=== PATIENT | female | born 1955 | race Caucasian/White ===

== ENCOUNTER 2022-12-30 08:50 | Outpatient (CLI) | payer MEDICARE | END 2022-12-30 08:51 | disposition home or self-care (01) | LOC: CSHWCC 08:50 | PROVIDERS: ATTEND Nurse Practitioner Family | DX: L89.154 Pressure ulcer of sacral region, stage 4 (principal); L89.314 Pressure ulcer of right buttock, stage 4 | CPT/HCPCS: 11042; 97139; 97607; G0463; 99213 ==

== ENCOUNTER 2023-01-12 09:52 | Outpatient (CLI) | payer MEDICARE | END 2023-01-12 09:53 | disposition home or self-care (01) | LOC: CSHWCC 09:52 | PROVIDERS: ATTEND Nurse Practitioner Family | DX: L89.154 Pressure ulcer of sacral region, stage 4 (principal); L89.314 Pressure ulcer of right buttock, stage 4 | CPT/HCPCS: 97607 ==

== ENCOUNTER 2023-01-19 15:24 | Outpatient (CLI) | payer MEDICARE | END 2023-01-19 15:25 | disposition home or self-care (01) | LOC: CSHWCC 15:24 | PROVIDERS: ATTEND Nurse Practitioner Family | DX: L89.154 Pressure ulcer of sacral region, stage 4 (principal); L89.314 Pressure ulcer of right buttock, stage 4; L89.323 Pressure ulcer of left buttock, stage 3 | CPT/HCPCS: 97607 ==

== ENCOUNTER 2023-01-26 15:29 | Outpatient (CLI) | payer MEDICARE | END 2023-01-26 15:30 | disposition home or self-care (01) | LOC: CSHWCC 15:29 | PROVIDERS: ATTEND Nurse Practitioner Family | DX: L89.154 Pressure ulcer of sacral region, stage 4 (principal); L89.314 Pressure ulcer of right buttock, stage 4; L89.323 Pressure ulcer of left buttock, stage 3 | CPT/HCPCS: 11043; 97607 ==

== ENCOUNTER 2023-02-02 15:22 | Outpatient (CLI) | payer MEDICARE | END 2023-02-02 15:23 | disposition home or self-care (01) | LOC: CSHWCC 15:22 | PROVIDERS: ATTEND Nurse Practitioner Family | DX: L89.154 Pressure ulcer of sacral region, stage 4 (principal); L89.314 Pressure ulcer of right buttock, stage 4; L89.323 Pressure ulcer of left buttock, stage 3 | CPT/HCPCS: 97607 ==

== ENCOUNTER 2023-02-10 13:06 | Outpatient (CLI) | payer MEDICARE | END 2023-02-10 13:07 | disposition home or self-care (01) | LOC: CSHWCC 13:06 | PROVIDERS: ATTEND Nurse Practitioner Family | DX: L89.154 Pressure ulcer of sacral region, stage 4 (principal); L89.314 Pressure ulcer of right buttock, stage 4; L89.323 Pressure ulcer of left buttock, stage 3 | CPT/HCPCS: 97607 ==

== ENCOUNTER 2023-02-16 16:12 | Outpatient (CLI) | payer MEDICARE | END 2023-02-16 16:13 | disposition home or self-care (01) | LOC: CSHWCC 16:12 | PROVIDERS: ATTEND Nurse Practitioner Family | DX: L89.154 Pressure ulcer of sacral region, stage 4 (principal); L89.314 Pressure ulcer of right buttock, stage 4; L89.323 Pressure ulcer of left buttock, stage 3 | CPT/HCPCS: 97602 ==

== ENCOUNTER 2023-02-17 09:49 | Outpatient (CLI) | payer MEDICARE | END 2023-02-17 09:50 | disposition home or self-care (01) | LOC: CSHRAD 09:49 | PROVIDERS: ATTEND Nurse Practitioner Family | DX: L89.323 Pressure ulcer of left buttock, stage 3 (principal) | CPT/HCPCS: 72170 ==

== ENCOUNTER 2023-04-02 09:12 | Outpatient (CLI) | payer MEDICARE | END 2023-04-02 09:13 | disposition home or self-care (01) | LOC: CSHWCC 09:12 | PROVIDERS: ATTEND Physician Assistant | DX: L89.320 Pressure ulcer of left buttock, unstageable (principal); L89.310 Pressure ulcer of right buttock, unstageable; G82.20 Paraplegia, unspecified | CPT/HCPCS: 97597 ==

== ENCOUNTER 2023-05-20 10:12 | Outpatient (CLI) | payer MEDICARE | END 2023-05-20 10:13 | disposition home or self-care (01) | LOC: CSHWCC 10:12 | PROVIDERS: ATTEND Physician Assistant | DX: L89.310 Pressure ulcer of right buttock, unstageable (principal); L89.150 Pressure ulcer of sacral region, unstageable; L89.324 Pressure ulcer of left buttock, stage 4 | CPT/HCPCS: 97597; 97605 ==

== ENCOUNTER 2023-06-17 13:20 | Outpatient (CLI) | payer MEDICARE | END 2023-06-17 13:21 | disposition home or self-care (01) | LOC: CSHWCC 13:20 | PROVIDERS: ATTEND Preventive Medicine Undersea and Hyperbaric Medicine | DX: L89.304 Pressure ulcer of unspecified buttock, stage 4 (principal) | CPT/HCPCS: 97605; G0463; 99213 ==

== ENCOUNTER 2023-06-19 11:26 | Outpatient (CLI) | payer MEDICARE | END 2023-06-19 11:27 | disposition home or self-care (01) | LOC: CSHWCC 11:26 | PROVIDERS: ATTEND Preventive Medicine Undersea and Hyperbaric Medicine | DX: L89.304 Pressure ulcer of unspecified buttock, stage 4 (principal) | CPT/HCPCS: 97605 ==

== ENCOUNTER 2024-04-26 13:32 | Outpatient (CLI) | payer MEDICARE | END 2024-04-26 13:33 | disposition home or self-care (01) | LOC: CSHWCC 13:32 | PROVIDERS: ATTEND Nurse Practitioner Family | DX: E11.622 Type 2 diabetes mellitus with other skin ulcer (principal); L89.44 Pressure ulcer of contiguous site of back, buttock and hip, stage 4; G37.3 Acute transverse myelitis in demyelinating disease of central nervous system | CPT/HCPCS: 11042 ==

== ENCOUNTER 2024-05-02 12:41 | Outpatient (CLI) | payer MEDICARE | END 2024-05-02 12:42 | disposition home or self-care (01) | LOC: CSHWCC 12:41 | PROVIDERS: ATTEND Nurse Practitioner Family | DX: L89.44 Pressure ulcer of contiguous site of back, buttock and hip, stage 4 (principal); E11.622 Type 2 diabetes mellitus with other skin ulcer; L98.499 Non-pressure chronic ulcer of skin of other sites with unspecified severity; G37.3 Acute transverse myelitis in demyelinating disease of central nervous system | CPT/HCPCS: 11042; G0463; 99213 ==

== ENCOUNTER 2024-05-10 14:05 | Outpatient (CLI) | payer MEDICARE | END 2024-05-10 14:06 | disposition home or self-care (01) | LOC: CSHWCC 14:05 | PROVIDERS: ATTEND Nurse Practitioner Family | DX: L89.44 Pressure ulcer of contiguous site of back, buttock and hip, stage 4 (principal); E11.622 Type 2 diabetes mellitus with other skin ulcer; L98.499 Non-pressure chronic ulcer of skin of other sites with unspecified severity; G37.3 Acute transverse myelitis in demyelinating disease of central nervous system | CPT/HCPCS: 11042; 97605; G0463; 99212 ==

== ENCOUNTER 2024-05-17 11:18 | Outpatient (CLI) | payer MEDICARE | END 2024-05-17 11:19 | disposition home or self-care (01) | LOC: CSHWCC 11:18 | PROVIDERS: ATTEND Nurse Practitioner Family | DX: L89.44 Pressure ulcer of contiguous site of back, buttock and hip, stage 4 (principal); G37.3 Acute transverse myelitis in demyelinating disease of central nervous system; E11.622 Type 2 diabetes mellitus with other skin ulcer; L98.499 Non-pressure chronic ulcer of skin of other sites with unspecified severity | CPT/HCPCS: 11042; 97605 ==

== ENCOUNTER 2024-05-24 14:51 | Outpatient (CLI) | payer MEDICARE | END 2024-05-24 14:52 | disposition home or self-care (01) | LOC: CSHWCC 14:51 | PROVIDERS: ATTEND Nurse Practitioner Family | DX: L89.44 Pressure ulcer of contiguous site of back, buttock and hip, stage 4 (principal); E11.622 Type 2 diabetes mellitus with other skin ulcer; L98.499 Non-pressure chronic ulcer of skin of other sites with unspecified severity; G37.3 Acute transverse myelitis in demyelinating disease of central nervous system; M86.38 Chronic multifocal osteomyelitis, other site | CPT/HCPCS: 11042; G0463; 99212 ==

== ENCOUNTER 2024-05-30 14:18 | Outpatient (CLI) | payer MEDICARE | END 2024-05-30 14:19 | disposition home or self-care (01) | LOC: CSHWCC 14:18 | PROVIDERS: ATTEND Nurse Practitioner Family | DX: L89.44 Pressure ulcer of contiguous site of back, buttock and hip, stage 4 (principal); E11.622 Type 2 diabetes mellitus with other skin ulcer; L98.499 Non-pressure chronic ulcer of skin of other sites with unspecified severity; G37.3 Acute transverse myelitis in demyelinating disease of central nervous system; M86.38 Chronic multifocal osteomyelitis, other site | CPT/HCPCS: 11042; 87070; 87077; 87186; 87205; 97605; G0463; 99213 ==

== ENCOUNTER 2024-06-17 13:20 | Outpatient (CLI) | payer MEDICARE | END 2024-06-17 13:21 | disposition home or self-care (01) | LOC: CSHWCC 13:20 | PROVIDERS: ATTEND Nurse Practitioner Family | DX: L89.44 Pressure ulcer of contiguous site of back, buttock and hip, stage 4 (principal); E11.622 Type 2 diabetes mellitus with other skin ulcer; L98.499 Non-pressure chronic ulcer of skin of other sites with unspecified severity; M86.38 Chronic multifocal osteomyelitis, other site; G37.3 Acute transverse myelitis in demyelinating disease of central nervous system ==

== ENCOUNTER 2025-01-19 06:00 | Day surgery (SDC) | payer MEDICARE ==
[2025-01-11 11:31] VITALS: BMI 22.6
[2025-01-19] MEDS ORDERED: Bupivacaine HCl 0.5%/Epinephrine 1:200,000/PF 30 ml Vial ONE (06:52)
[2025-01-19] MEDS ORDERED: Etomidate 40 MG (20 mL) VIAL ONE (07:14)
[2025-01-19] MEDS ORDERED: PROPOFOL 20 ML ONE (07:16)
[2025-01-19] MEDS ORDERED: Rocuronium Bromide 10 MG/ML (10ML VIAL) ONE (07:17)
[2025-01-19] MEDS ORDERED: Ondansetron PF 4 MG/2 ML Vial ONE (07:54)
[2025-01-19] MEDS ORDERED: SUGAMMADEX SODIUM 200 MG/2 ML VIAL ONE (08:16)
[2025-01-19] MEDS ORDERED: Acetaminophen 500 MG TAB ONE (09:45)
== END 2025-01-19 10:40 | disposition home or self-care (01) ==
LOC: CSHSDC 06:00
PROVIDERS: ATTEND Surgery
PROC: 0JB90ZZ Excision of Buttock Subcutaneous Tissue and Fascia, Open Approach (ICD-10-PCS; principal; 2025-01-19)
DX: L89.323 Pressure ulcer of left buttock, stage 3 (principal); L89.313 Pressure ulcer of right buttock, stage 3; E11.9 Type 2 diabetes mellitus without complications; G37.3 Acute transverse myelitis in demyelinating disease of central nervous system; Z91.018 Allergy to other foods; Z88.1 Allergy status to other antibiotic agents; Z88.5 Allergy status to narcotic agent; Z91.040 Latex allergy status; Z88.0 Allergy status to penicillin; Z88.8 Allergy status to other drugs, medicaments and biological substances; Z79.4 Long term (current) use of insulin; Z79.899 Other long term (current) drug therapy
CPT/HCPCS: 11042; 11045; 82962; J2405; J2704; J3010; J3490; 36416

== ENCOUNTER 2025-01-20 13:41 | Outpatient (CLI) | payer MEDICARE | END 2025-01-20 13:42 | disposition home or self-care (01) | LOC: CSHWCC 13:41 | PROVIDERS: ATTEND Nurse Practitioner Family | DX: L89.44 Pressure ulcer of contiguous site of back, buttock and hip, stage 4 (principal); E11.622 Type 2 diabetes mellitus with other skin ulcer; L98.499 Non-pressure chronic ulcer of skin of other sites with unspecified severity; G37.3 Acute transverse myelitis in demyelinating disease of central nervous system; M86.38 Chronic multifocal osteomyelitis, other site | CPT/HCPCS: 97605; G0463; 99214 ==

== ENCOUNTER 2025-01-27 11:38 | Outpatient (CLI) | payer MEDICARE | END 2025-01-27 11:39 | disposition home or self-care (01) | LOC: CSHWCC 11:38 | PROVIDERS: ATTEND Nurse Practitioner Family | DX: L89.44 Pressure ulcer of contiguous site of back, buttock and hip, stage 4 (principal); E11.622 Type 2 diabetes mellitus with other skin ulcer; L98.499 Non-pressure chronic ulcer of skin of other sites with unspecified severity; G37.3 Acute transverse myelitis in demyelinating disease of central nervous system; M86.38 Chronic multifocal osteomyelitis, other site ==

== ENCOUNTER 2025-01-30 10:56 | Outpatient (CLI) | payer MEDICARE | END 2025-01-30 10:57 | disposition home or self-care (01) | LOC: CSHWCC 10:56 | PROVIDERS: ATTEND Nurse Practitioner Family | DX: L89.44 Pressure ulcer of contiguous site of back, buttock and hip, stage 4 (principal); E11.622 Type 2 diabetes mellitus with other skin ulcer; L98.499 Non-pressure chronic ulcer of skin of other sites with unspecified severity; G37.3 Acute transverse myelitis in demyelinating disease of central nervous system; M86.38 Chronic multifocal osteomyelitis, other site ==

== ENCOUNTER 2025-02-02 11:10 | Outpatient (CLI) | payer MEDICARE | END 2025-02-02 11:11 | disposition home or self-care (01) | LOC: CSHWCC 11:10 | PROVIDERS: ATTEND Nurse Practitioner Family | DX: L89.44 Pressure ulcer of contiguous site of back, buttock and hip, stage 4 (principal); E11.622 Type 2 diabetes mellitus with other skin ulcer; L98.499 Non-pressure chronic ulcer of skin of other sites with unspecified severity; G37.3 Acute transverse myelitis in demyelinating disease of central nervous system; M86.38 Chronic multifocal osteomyelitis, other site | CPT/HCPCS: 11042; 97605 ==

== ENCOUNTER 2025-02-07 12:28 | Outpatient (CLI) | payer MEDICARE | END 2025-02-07 12:29 | disposition home or self-care (01) | LOC: CSHWCC 12:28 | PROVIDERS: ATTEND Nurse Practitioner Family | DX: L89.44 Pressure ulcer of contiguous site of back, buttock and hip, stage 4 (principal); E11.622 Type 2 diabetes mellitus with other skin ulcer; L98.499 Non-pressure chronic ulcer of skin of other sites with unspecified severity; G37.3 Acute transverse myelitis in demyelinating disease of central nervous system; M86.38 Chronic multifocal osteomyelitis, other site | CPT/HCPCS: 97605 ==

== ENCOUNTER 2025-02-10 10:28 | Outpatient (CLI) | payer MEDICARE | END 2025-02-10 10:29 | disposition home or self-care (01) | LOC: CSHWCC 10:28 | PROVIDERS: ATTEND Nurse Practitioner Family | DX: L89.44 Pressure ulcer of contiguous site of back, buttock and hip, stage 4 (principal); E11.622 Type 2 diabetes mellitus with other skin ulcer; L98.499 Non-pressure chronic ulcer of skin of other sites with unspecified severity; E11.69 Type 2 diabetes mellitus with other specified complication; M86.38 Chronic multifocal osteomyelitis, other site; G37.3 Acute transverse myelitis in demyelinating disease of central nervous system | CPT/HCPCS: 97605; G0463; 99213 ==

== ENCOUNTER 2025-02-14 11:06 | Outpatient (CLI) | payer MEDICARE | END 2025-02-14 11:07 | disposition home or self-care (01) | LOC: CSHWCC 11:06 | PROVIDERS: ATTEND Nurse Practitioner Family | DX: L89.44 Pressure ulcer of contiguous site of back, buttock and hip, stage 4 (principal); E11.622 Type 2 diabetes mellitus with other skin ulcer; L98.499 Non-pressure chronic ulcer of skin of other sites with unspecified severity; G37.3 Acute transverse myelitis in demyelinating disease of central nervous system; M86.38 Chronic multifocal osteomyelitis, other site | CPT/HCPCS: 97605 ==

== ENCOUNTER 2025-02-17 10:11 | Outpatient (CLI) | payer MEDICARE | END 2025-02-17 10:12 | disposition home or self-care (01) | LOC: CSHWCC 10:11 | PROVIDERS: ATTEND Nurse Practitioner Family | DX: L89.44 Pressure ulcer of contiguous site of back, buttock and hip, stage 4 (principal); E11.622 Type 2 diabetes mellitus with other skin ulcer; L98.499 Non-pressure chronic ulcer of skin of other sites with unspecified severity; G37.3 Acute transverse myelitis in demyelinating disease of central nervous system; E11.69 Type 2 diabetes mellitus with other specified complication; M86.38 Chronic multifocal osteomyelitis, other site | CPT/HCPCS: 11042; 97605 ==

== ENCOUNTER 2025-02-21 11:03 | Outpatient (CLI) | payer MEDICARE | END 2025-02-21 11:04 | disposition home or self-care (01) | LOC: CSHWCC 11:03 | PROVIDERS: ATTEND Nurse Practitioner Family | DX: L89.44 Pressure ulcer of contiguous site of back, buttock and hip, stage 4 (principal); E11.622 Type 2 diabetes mellitus with other skin ulcer; L98.499 Non-pressure chronic ulcer of skin of other sites with unspecified severity; E11.69 Type 2 diabetes mellitus with other specified complication; M86.38 Chronic multifocal osteomyelitis, other site; G37.3 Acute transverse myelitis in demyelinating disease of central nervous system | CPT/HCPCS: 97605 ==

== ENCOUNTER 2025-02-24 10:12 | Outpatient (CLI) | payer MEDICARE | END 2025-02-24 10:13 | disposition home or self-care (01) | LOC: CSHWCC 10:12 | PROVIDERS: ATTEND Nurse Practitioner Family | DX: L89.44 Pressure ulcer of contiguous site of back, buttock and hip, stage 4 (principal); E11.622 Type 2 diabetes mellitus with other skin ulcer; L98.499 Non-pressure chronic ulcer of skin of other sites with unspecified severity; G37.3 Acute transverse myelitis in demyelinating disease of central nervous system; E11.69 Type 2 diabetes mellitus with other specified complication; M86.38 Chronic multifocal osteomyelitis, other site | CPT/HCPCS: 11042; 97606 ==

== ENCOUNTER 2025-02-28 11:16 | Outpatient (CLI) | payer MEDICARE | END 2025-02-28 11:17 | disposition home or self-care (01) | LOC: CSHWCC 11:16 | PROVIDERS: ATTEND Nurse Practitioner Family | DX: L89.44 Pressure ulcer of contiguous site of back, buttock and hip, stage 4 (principal); E11.622 Type 2 diabetes mellitus with other skin ulcer; L98.499 Non-pressure chronic ulcer of skin of other sites with unspecified severity; G37.3 Acute transverse myelitis in demyelinating disease of central nervous system; E11.69 Type 2 diabetes mellitus with other specified complication; M86.38 Chronic multifocal osteomyelitis, other site | CPT/HCPCS: 82962; 97605; G0463; 36416; 99213 ==

== ENCOUNTER 2025-03-03 10:57 | Outpatient (CLI) | payer MEDICARE | END 2025-03-03 10:58 | disposition home or self-care (01) | LOC: CSHWCC 10:57 | PROVIDERS: ATTEND Nurse Practitioner Family | DX: L89.44 Pressure ulcer of contiguous site of back, buttock and hip, stage 4 (principal); E11.622 Type 2 diabetes mellitus with other skin ulcer; L98.499 Non-pressure chronic ulcer of skin of other sites with unspecified severity; G37.3 Acute transverse myelitis in demyelinating disease of central nervous system; E11.69 Type 2 diabetes mellitus with other specified complication; M86.38 Chronic multifocal osteomyelitis, other site | CPT/HCPCS: 11042 ==

== ENCOUNTER 2025-03-07 11:10 | Outpatient (CLI) | payer MEDICARE | END 2025-03-07 11:11 | disposition home or self-care (01) | LOC: CSHWCC 11:10 | PROVIDERS: ATTEND Nurse Practitioner Family | DX: L89.44 Pressure ulcer of contiguous site of back, buttock and hip, stage 4 (principal); E11.622 Type 2 diabetes mellitus with other skin ulcer; L98.499 Non-pressure chronic ulcer of skin of other sites with unspecified severity; G37.3 Acute transverse myelitis in demyelinating disease of central nervous system; E11.69 Type 2 diabetes mellitus with other specified complication; M86.38 Chronic multifocal osteomyelitis, other site | CPT/HCPCS: 97605 ==

== ENCOUNTER 2025-03-10 09:00 | Outpatient (CLI) | payer MEDICARE | END 2025-03-10 09:01 | disposition home or self-care (01) | LOC: CSHWCC 09:00 | PROVIDERS: ATTEND Nurse Practitioner Family | DX: L89.44 Pressure ulcer of contiguous site of back, buttock and hip, stage 4 (principal); E11.622 Type 2 diabetes mellitus with other skin ulcer; L98.499 Non-pressure chronic ulcer of skin of other sites with unspecified severity; E11.69 Type 2 diabetes mellitus with other specified complication; M86.38 Chronic multifocal osteomyelitis, other site; G37.3 Acute transverse myelitis in demyelinating disease of central nervous system | CPT/HCPCS: 11042; 97605 ==

== ENCOUNTER 2025-03-14 11:33 | Outpatient (CLI) | payer MEDICARE | END 2025-03-14 11:34 | disposition home or self-care (01) | LOC: CSHWCC 11:33 | PROVIDERS: ATTEND Nurse Practitioner Family | DX: L89.44 Pressure ulcer of contiguous site of back, buttock and hip, stage 4 (principal); E11.622 Type 2 diabetes mellitus with other skin ulcer; L98.499 Non-pressure chronic ulcer of skin of other sites with unspecified severity; G37.3 Acute transverse myelitis in demyelinating disease of central nervous system; E11.69 Type 2 diabetes mellitus with other specified complication; M86.38 Chronic multifocal osteomyelitis, other site | CPT/HCPCS: 97605 ==

== ENCOUNTER 2025-03-17 10:54 | Outpatient (CLI) | payer MEDICARE | END 2025-03-17 10:55 | disposition home or self-care (01) | LOC: CSHWCC 10:54 | PROVIDERS: ATTEND Nurse Practitioner Family | DX: L89.44 Pressure ulcer of contiguous site of back, buttock and hip, stage 4 (principal); E11.622 Type 2 diabetes mellitus with other skin ulcer; S31.821D Laceration without foreign body of left buttock, subsequent encounter; L98.499 Non-pressure chronic ulcer of skin of other sites with unspecified severity; G37.3 Acute transverse myelitis in demyelinating disease of central nervous system; E11.69 Type 2 diabetes mellitus with other specified complication; M86.38 Chronic multifocal osteomyelitis, other site | CPT/HCPCS: 11042; 97605; G0463; 99213 ==

== ENCOUNTER 2025-03-21 10:56 | Outpatient (CLI) | payer MEDICARE | END 2025-03-21 10:57 | disposition home or self-care (01) | LOC: CSHWCC 10:56 | PROVIDERS: ATTEND Nurse Practitioner Family | DX: L89.44 Pressure ulcer of contiguous site of back, buttock and hip, stage 4 (principal); E11.622 Type 2 diabetes mellitus with other skin ulcer; S31.821D Laceration without foreign body of left buttock, subsequent encounter; G37.3 Acute transverse myelitis in demyelinating disease of central nervous system; M86.38 Chronic multifocal osteomyelitis, other site | CPT/HCPCS: 97605 ==

== ENCOUNTER 2025-03-24 10:50 | Outpatient (CLI) | payer MEDICARE | END 2025-03-24 10:51 | disposition home or self-care (01) | LOC: CSHWCC 10:50 | PROVIDERS: ATTEND Nurse Practitioner Family | DX: L89.44 Pressure ulcer of contiguous site of back, buttock and hip, stage 4 (principal); S31.821D Laceration without foreign body of left buttock, subsequent encounter; E11.622 Type 2 diabetes mellitus with other skin ulcer; L98.499 Non-pressure chronic ulcer of skin of other sites with unspecified severity; G37.3 Acute transverse myelitis in demyelinating disease of central nervous system; E11.69 Type 2 diabetes mellitus with other specified complication; M86.38 Chronic multifocal osteomyelitis, other site | CPT/HCPCS: 11042; 97605 ==

== ENCOUNTER 2025-03-31 10:59 | Outpatient (CLI) | payer MEDICARE | END 2025-03-31 11:00 | disposition home or self-care (01) | LOC: CSHWCC 10:59 | PROVIDERS: ATTEND Nurse Practitioner Family | DX: L89.44 Pressure ulcer of contiguous site of back, buttock and hip, stage 4 (principal); E11.622 Type 2 diabetes mellitus with other skin ulcer; L98.499 Non-pressure chronic ulcer of skin of other sites with unspecified severity; M86.38 Chronic multifocal osteomyelitis, other site; G37.3 Acute transverse myelitis in demyelinating disease of central nervous system | CPT/HCPCS: 11042; 97605 ==

== ENCOUNTER 2025-04-06 10:22 | Outpatient (CLI) | payer MEDICARE | END 2025-04-06 10:23 | disposition home or self-care (01) | LOC: CSHWCC 10:22 | PROVIDERS: ATTEND Nurse Practitioner Family | DX: L89.44 Pressure ulcer of contiguous site of back, buttock and hip, stage 4 (principal); E11.622 Type 2 diabetes mellitus with other skin ulcer; L98.499 Non-pressure chronic ulcer of skin of other sites with unspecified severity; G37.3 Acute transverse myelitis in demyelinating disease of central nervous system; E11.69 Type 2 diabetes mellitus with other specified complication; M86.38 Chronic multifocal osteomyelitis, other site | CPT/HCPCS: 11042; 97605 ==

== ENCOUNTER 2025-04-20 10:27 | Outpatient (CLI) | payer MEDICARE | END 2025-04-20 10:28 | disposition home or self-care (01) | LOC: CSHWCC 10:27 | PROVIDERS: ATTEND Nurse Practitioner Family | DX: L89.44 Pressure ulcer of contiguous site of back, buttock and hip, stage 4 (principal); E11.622 Type 2 diabetes mellitus with other skin ulcer; L98.499 Non-pressure chronic ulcer of skin of other sites with unspecified severity; G37.3 Acute transverse myelitis in demyelinating disease of central nervous system; M86.38 Chronic multifocal osteomyelitis, other site | CPT/HCPCS: 11042; 97605 ==

== ENCOUNTER 2025-05-05 10:27 | Outpatient (CLI) | payer MEDICARE | END 2025-05-05 10:28 | disposition home or self-care (01) | LOC: CSHWCC 10:27 | PROVIDERS: ATTEND Nurse Practitioner Family | DX: L89.44 Pressure ulcer of contiguous site of back, buttock and hip, stage 4 (principal); E11.622 Type 2 diabetes mellitus with other skin ulcer; L98.499 Non-pressure chronic ulcer of skin of other sites with unspecified severity; E11.69 Type 2 diabetes mellitus with other specified complication; M86.38 Chronic multifocal osteomyelitis, other site; G37.3 Acute transverse myelitis in demyelinating disease of central nervous system | CPT/HCPCS: 11042; 97605; G0463; 99213 ==

== ENCOUNTER 2025-05-12 10:47 | Outpatient (CLI) | payer MEDICARE | END 2025-05-12 10:48 | disposition home or self-care (01) | LOC: CSHWCC 10:47 | PROVIDERS: ATTEND Nurse Practitioner Family | DX: L89.44 Pressure ulcer of contiguous site of back, buttock and hip, stage 4 (principal); E11.622 Type 2 diabetes mellitus with other skin ulcer; L98.499 Non-pressure chronic ulcer of skin of other sites with unspecified severity; G37.3 Acute transverse myelitis in demyelinating disease of central nervous system; E11.69 Type 2 diabetes mellitus with other specified complication; M86.38 Chronic multifocal osteomyelitis, other site | CPT/HCPCS: 11042 ==

== ENCOUNTER 2025-05-18 11:56 | Outpatient (CLI) | payer MEDICARE | END 2025-05-18 11:57 | disposition home or self-care (01) | LOC: CSHWCC 11:56 | PROVIDERS: ATTEND Nurse Practitioner Family | DX: L89.44 Pressure ulcer of contiguous site of back, buttock and hip, stage 4 (principal); E11.622 Type 2 diabetes mellitus with other skin ulcer; G37.3 Acute transverse myelitis in demyelinating disease of central nervous system; M86.38 Chronic multifocal osteomyelitis, other site | CPT/HCPCS: 11042; 97605 ==

== ENCOUNTER 2025-05-25 10:27 | Outpatient (CLI) | payer MEDICARE | END 2025-05-25 10:28 | disposition home or self-care (01) | LOC: CSHWCC 10:27 | PROVIDERS: ATTEND Nurse Practitioner Family | DX: L89.44 Pressure ulcer of contiguous site of back, buttock and hip, stage 4 (principal); E11.622 Type 2 diabetes mellitus with other skin ulcer; M86.38 Chronic multifocal osteomyelitis, other site; G37.3 Acute transverse myelitis in demyelinating disease of central nervous system ==